=== PATIENT | male | born 2000 | race Caucasian/White ===

== ENCOUNTER 2022-09-04 06:25 | Emergency (ER) | payer OTHER ==
[~2022-09-04] VITALS: Ht 182.9 cm; Wt 104.3 kg
== END 2022-09-04 10:57 | disposition home or self-care (01) ==
LOC: EMR PED 06:25 → ER 06:25 → EMR PED 07:07
DX: M94.0 Chondrocostal junction syndrome [Tietze] (principal)

== ENCOUNTER 2023-04-30 00:49 | Emergency (ER) | payer OTHER ==
[~2023-04-30] VITALS: Ht 182.9 cm; Wt 94.8 kg
== END 2023-04-30 05:34 ==
LOC: ER 00:49
DX: R07.9 Chest pain, unspecified (principal); R53.81 Other malaise; F41.9 Anxiety disorder, unspecified